=== PATIENT | male | born 1930 | race Caucasian/White ===

== ENCOUNTER 2020-09-30 13:31 | Inpatient (IN) | payer MEDICARE, MEDICAID ==
[~2020-09-30] VITALS: Ht 157.5 cm; Wt 49.9 kg
[2020-09-30] MEDS ORDERED: DEXAMETHASONE 4MG/ML 1ML VIAL IV ONE (15:00)
[2020-09-30] MEDS ORDERED: ALBUTEROL 6.7GM HFA INHALER ORI ONE (15:00)
[2020-09-30 15:49] LABS: CHLORIDE 101 mEq/L (98-107)
[2020-09-30 16:01] LABS: HEMOGLOBIN. 14.4 g/dL (14.0-18.0); MEAN CORPUSCULAR HEMOGLOBIN 29.7 pg (28.0-32.0); MEAN CORPUSCULAR VOLUME 86.6 fL (80.0-94.0); MEAN PLATELET VOLUME 8.5 fl (7.4-10.4); PLATELET 255 x1000/uL (130-400); RED BLOOD CELL COUNT 4.85 mill/uL (4.7-6.1); RED CELL DISTRIBUTION WIDTH 14.5 % (11.6-14.6)
[2020-09-30 17:19] LABS: PLATELET ESTIMATE NORMAL
[2020-09-30] MEDS ORDERED: FUROSEMIDE 20MG TABLET PO ONE (19:45)
[2020-09-30] MEDS ORDERED: AZITHROMYCIN 500 MG in DEXT 5% WATER 250 ML IV SCH ×2 (20:00→22:45)
[2020-09-30] MEDS ORDERED: CEFTRIAXONE 1 G PREMIX 50 ML IV NR ×2 (20:00→23:30)
[2020-09-30] MEDS ORDERED: CLONIDINE 0.1MG TABLET PO PRN (22:45)
[2020-09-30] MEDS ORDERED: ACETAMINOPHEN 325MG TABLET PO PRN (22:45)
[2020-09-30] MEDS ORDERED: IPRATROPIUM/ALBUTEROL 0.5-3(2.5)MG/3ML NEB ORI PRN (22:45)
[2020-09-30] MEDS ORDERED: HYDROCODONE/ACETAMINOPHEN 5/325MG TABLET PO PRN (22:45)
[2020-09-30] MEDS ORDERED: MAGNESIUM/ALUMINUM HYDROXIDE/SIMETHICONE 30ML UDC PO PRN (22:45)
[2020-09-30] MEDS ORDERED: ONDANSETRON HCL 4MG/2ML INJ IV PRN (22:45)
[2020-09-30] MEDS ORDERED: GUAIFENESIN 200MG/10ML SUGAR FREE UDC PO PRN (22:45)
[2020-09-30] MEDS ORDERED: DOCUSATE SODIUM 100MG CAPSULE PO PRN (22:45)
[2020-09-30] MEDS ORDERED: ENOXAPARIN 40MG/0.4ML SYR SUBCUT NR (22:58)
[2020-09-30] MEDS ORDERED: ADENOSINE 3 MG/ML 2ML VIAL IV NR (23:15)
[2020-09-30] MEDS ORDERED: SODIUM CHLORIDE 0.9% 1,000 ML IV ONE (23:15)
[2020-10-01 01:32] LABS: CHLORIDE 101 mEq/L (98-107)
[2020-10-01 01:59] VITALS: BP 132/71
[2020-10-01 04:00] VITALS: BP 144/76
[2020-10-01 05:59] LABS: CLARITY URINE CLEAR (CLEAR); COLOR URINE DARK YELLOW (YELLOW); KETONES URINE TRACE (NEGATIVE); LEUKOCYTE ESTERASE URINE NEGATIVE (NEGATIVE); NITRITE URINE NEGATIVE (NEGATIVE); OCCULT BLOOD URINE 2+ (NEGATIVE); PH URINE 5.5 (4.5-8.0); PROTEIN URINE 2+ (NEGATIVE); SPECIFIC GRAVITY URINE 1.024 (1.005-1.030)
[2020-10-01] MEDS: BLOOD SUGAR DIAGNOSTIC STRIP TEST SCH ×4 (06:00→22:20)
[2020-10-01 08:00] VITALS: BP 145/73
[2020-10-01] MEDS: INSULIN LISPRO 100 UNITS/ML SUBCUT SCH ×4 (08:10→22:28)
[2020-10-01 08:39] LABS: HEMOGLOBIN. 15.2 g/dL (14.0-18.0); MEAN CORPUSCULAR HEMOGLOBIN 29.7 pg (28.0-32.0); MEAN CORPUSCULAR VOLUME 87.9 fL (80.0-94.0); MEAN PLATELET VOLUME 8.8 fl (7.4-10.4); PLATELET 269 x1000/uL (130-400); RED BLOOD CELL COUNT 5.11 mill/uL (4.7-6.1); RED CELL DISTRIBUTION WIDTH 14.3 % (11.6-14.6)
[2020-10-01 08:59] LABS: CREATINE KINASE MB FRACTION 29.7 ng/mL (0.5-3.6)
[2020-10-01] MEDS: DEXAMETHASONE 10 MG/ML VIAL IV SCH (09:51)
[2020-10-01 11:53] LABS: PLATELET ESTIMATE NORMAL
[2020-10-01 12:00] VITALS: BP 138/115
[2020-10-01] MEDS: FAMOTIDINE 20MG TABLET PO SCH ×2 (15:19→21:40)
[2020-10-01 16:00] VITALS: BP 142/28
[2020-10-01 16:23] LABS: CREATINE KINASE MB FRACTION 32.9 ng/mL (0.5-3.6)
[2020-10-01] MEDS ORDERED: ALBUTEROL 6.7GM HFA INHALER ORI PRN (17:00)
[2020-10-01] MEDS ORDERED: IPRATROPIUM/ALBUTEROL 0.5-3(2.5)MG/3ML NEB ORI PRN ×2 (17:00)
[2020-10-01 20:00] VITALS: BP 130/61
[2020-10-01] MEDS ORDERED: ENOXAPARIN 40MG/0.4ML SYR SUBCUT SCH (21:00)
[2020-10-01] MEDS: CEFTRIAXONE 1,000 MG in DEXTROSE 5% WATER 50 ML IV SCH (22:28)
[2020-10-01] MEDS: AZITHROMYCIN 500MG in DEXTROSE 5% WATER 250ML IV SCH (23:15)
[2020-10-01] MEDS ORDERED: DILTIAZEM HCL 5MG/ML 5ML VIAL IV NR (23:45)
[2020-10-02] VITALS (7 sets, daily range): BP systolic 97–136; BP diastolic 43–55
[2020-10-02] MEDS: AZITHROMYCIN 500MG in DEXTROSE 5% WATER 250ML IV SCH (00:03)
[2020-10-02] MEDS ORDERED: NON FORMULARY PATIENT HOME MED XX SCH (03:15)
[2020-10-02 03:27] LABS: BG BASE EXCESS -10.9 mmol/L (-2.0-2.0); BG CARBOXYHEMOGLOBIN 0.5 % (0.5-1.5); BG DEOXYHEMOGLOBIN 11.2 % (0.0-5.0); BG FRACTION INSPIRED OXYGEN 60; BG HCO3 ACT 16.1 mmol/L (22.0-26.0); BG METHEMOGLOBIN 0.3 % (0.0-1.5); BG OXYGEN SATURATION 88.7 % (92.0-98.5); BG PCO2 39.6 mmHg (35.0-45.0); BG PH 7.227 (7.350-7.450); BG PO2 65.4 mmHg (75.0-100.0); BG SAMPLE SITE RIGHT RADIAL; BG TOTAL HEMOGLOBIN 14.3 g/dL (12.0-18.0); BG VENT MODE MASK - SIMPLE
[2020-10-02] MEDS ORDERED: DILTIAZEM HCL 5MG/ML 5ML VIAL IV SCH (03:30)
[2020-10-02] MEDS: DILTIAZEM HCL 125 MG in DEXTROSE 5% WATER 125 ML IV SCH ×3 (04:50→20:10)
[2020-10-02] MEDS: BLOOD SUGAR DIAGNOSTIC STRIP TEST SCH ×4 (06:47→21:36)
[2020-10-02] MEDS: INSULIN LISPRO 100 UNITS/ML SUBCUT SCH ×4 (06:47→23:06)
[2020-10-02] MEDS ORDERED: ENOXAPARIN 60MG/0.6ML SYR SUBCUT SCH (09:00)
[2020-10-02] MEDS: FAMOTIDINE 20MG TABLET PO SCH ×2 (11:03→23:05)
[2020-10-02] MEDS: DEXAMETHASONE 10 MG/ML VIAL IV SCH (11:04)
[2020-10-02 11:25] LABS: HEMOGLOBIN. 14.5 g/dL (14.0-18.0); MEAN CORPUSCULAR HEMOGLOBIN 29.5 pg (28.0-32.0); MEAN CORPUSCULAR VOLUME 87.8 fL (80.0-94.0); MEAN PLATELET VOLUME 9.9 fl (7.4-10.4); PLATELET 273 x1000/uL (130-400); RED BLOOD CELL COUNT 4.89 mill/uL (4.7-6.1); RED CELL DISTRIBUTION WIDTH 14.4 % (11.6-14.6)
[2020-10-02] MEDS: DILTIAZEM HCL 60MG TABLET PO SCH ×2 (12:00→18:33)
[2020-10-02 14:13] LABS: PLATELET ESTIMATE NORMAL
[2020-10-02 16:07] LABS: INR 1.2
[2020-10-02] MEDS ORDERED: DEXT 5%/0.9% NACL 1,000 ML IV NR (16:30)
[2020-10-02] MEDS ORDERED: SODIUM POLYSTYRENE SULFONATE 15 G/60 ML BOT PO NR (18:00)
[2020-10-02] MEDS: CEFTRIAXONE 1,000 MG in DEXTROSE 5% WATER 50 ML IV SCH (23:21)
[2020-10-03] VITALS (8 sets, daily range): BP systolic 99–148; BP diastolic 48–80
[2020-10-03] MEDS: DILTIAZEM HCL 125 MG in DEXTROSE 5% WATER 125 ML IV SCH ×2
[2020-10-03] MEDS: AZITHROMYCIN 500MG in DEXTROSE 5% WATER 250ML IV SCH (00:06)
[2020-10-03] MEDS: DILTIAZEM HCL 60MG TABLET PO SCH ×2 (06:05)
[2020-10-03 06:25] LABS: HEMATOCRIT. 36.9 % (42.0-52.0); HEMOGLOBIN. 12.4 g/dL (14.0-18.0); MEAN CORPUSCULAR HEMOGLOBIN 29.2 pg (28.0-32.0); MEAN CORPUSCULAR VOLUME 86.9 fL (80.0-94.0); PLATELET 355 x1000/uL (130-400); RED BLOOD CELL COUNT 4.25 mill/uL (4.7-6.1); RED CELL DISTRIBUTION WIDTH 14.4 % (11.6-14.6)
[2020-10-03] MEDS: BLOOD SUGAR DIAGNOSTIC STRIP TEST SCH ×4 (06:59→21:58)
[2020-10-03] MEDS: INSULIN LISPRO 100 UNITS/ML SUBCUT SCH ×4 (08:40→21:00)
[2020-10-03] MEDS: FAMOTIDINE 20MG TABLET PO SCH ×2 (09:14→21:00)
[2020-10-03] MEDS: ENOXAPARIN 60MG/0.6ML SYR SUBCUT SCH (09:15)
[2020-10-03] MEDS: CLONIDINE 0.1MG TABLET PO SCH ×2 (12:36→22:00)
[2020-10-03] MEDS: DEXAMETHASONE 10 MG/ML VIAL IV SCH (12:37)
[2020-10-03] MEDS ORDERED: DILTIAZEM HCL 125 MG in DEXT 5% WATER 100 ML IV SCH (13:00)
[2020-10-03] MEDS: DILTIAZEM HCL 90MG TABLET PO SCH ×2 (15:38→22:00)
[2020-10-03] MEDS: DEXT 5%/0.9% NACL 1,000 ML IV SCH (16:58)
[2020-10-03 17:09] LABS: PLATELET ESTIMATE NORMAL
[2020-10-03 20:44] LABS: HEMATOCRIT 39.4 % (42.0-52.0); HEMOGLOBIN 12.8 g/dL (14.0-18.0)
[2020-10-04] VITALS (37 sets, daily range): BP systolic 75–128; BP diastolic 42–96
[2020-10-04] MEDS: CEFTRIAXONE 1,000 MG in DEXTROSE 5% WATER 50 ML IV SCH (00:45)
[2020-10-04] MEDS: AZITHROMYCIN 500MG in DEXTROSE 5% WATER 250ML IV SCH (00:45)
[2020-10-04 01:12] LABS: BG BASE EXCESS -9.8 mmol/L (-2.0-2.0); BG CARBOXYHEMOGLOBIN 0.3 % (0.5-1.5); BG DEOXYHEMOGLOBIN 9.5 % (0.0-5.0); BG FRACTION INSPIRED OXYGEN 100; BG HCO3 ACT 18.5 mmol/L (22.0-26.0); BG METHEMOGLOBIN 0.2 % (0.0-1.5); BG OXYGEN SATURATION 90.5 % (92.0-98.5); BG PCO2 51.1 mmHg (35.0-45.0); BG PH 7.176 (7.350-7.450); BG PO2 72.4 mmHg (75.0-100.0); BG SAMPLE SITE LEFT RADIAL; BG TOTAL HEMOGLOBIN 11.5 g/dL (12.0-18.0); BG VENT MODE MASK - NRB
[2020-10-04] MEDS: CLONIDINE 0.1MG TABLET PO SCH ×3 (06:00→22:00)
[2020-10-04] MEDS: DILTIAZEM HCL 90MG TABLET PO SCH ×3 (06:00→22:00)
[2020-10-04] MEDS: BLOOD SUGAR DIAGNOSTIC STRIP TEST SCH ×4 (08:02→21:39)
[2020-10-04] MEDS: FAMOTIDINE 20MG TABLET PO SCH ×2 (09:00→21:32)
[2020-10-04] MEDS: DEXAMETHASONE 10 MG/ML VIAL IV SCH (10:04)
[2020-10-04] MEDS: INSULIN LISPRO 100 UNITS/ML SUBCUT SCH ×4 (10:04→21:36)
[2020-10-04] MEDS: ENOXAPARIN 60MG/0.6ML SYR SUBCUT SCH (10:06)
[2020-10-04] MEDS: DEXT 5%/0.9% NACL 1,000 ML IV SCH ×2 (10:07→21:37)
[2020-10-04] MEDS ORDERED: FENTANYL CITRATE/PF 1,000 MCG in SODIUM CHLORIDE 0.9% 80 ML IV PRN (11:00)
[2020-10-04] MEDS ORDERED: NOREPINEPHRINE 32 MG in DEXT 5% WATER 218 ML IV PRN ×2 (11:00→11:30)
[2020-10-04] MEDS ORDERED: MIDAZOLAM HCL 100 MG in SODIUM CHLORIDE 0.9% 80 ML IV PRN (11:00)
[2020-10-04 11:04] LABS: HEMATOCRIT. 37.1 % (42.0-52.0); HEMOGLOBIN. 12.2 g/dL (14.0-18.0); MEAN CORPUSCULAR HEMOGLOBIN 29.6 pg (28.0-32.0); MEAN CORPUSCULAR VOLUME 90.4 fL (80.0-94.0); MEAN PLATELET VOLUME 9.3 fl (7.4-10.4); PLATELET 325 x1000/uL (130-400); RED BLOOD CELL COUNT 4.11 mill/uL (4.7-6.1); RED CELL DISTRIBUTION WIDTH 15.1 % (11.6-14.6)
[2020-10-04 11:22] LABS: CREATINE KINASE MB FRACTION 42.6 ng/mL (0.5-3.6)
[2020-10-04 12:52] LABS: BG BASE EXCESS -6.9 mmol/L (-2.0-2.0); BG CARBOXYHEMOGLOBIN 0.3 % (0.5-1.5); BG DEOXYHEMOGLOBIN 0.4 % (0.0-5.0); BG FRACTION INSPIRED OXYGEN 100; BG HCO3 ACT 19.4 mmol/L (22.0-26.0); BG OXYGEN SATURATION 99.6 % (92.0-98.5); BG OXYHEMOGLOBIN 99.3 % (94.0-97.0); BG PCO2 41.9 mmHg (35.0-45.0); BG PH 7.284 (7.350-7.450); BG SAMPLE SITE RIGHT BRACHIAL; BG TOTAL HEMOGLOBIN 12.7 g/dL (12.0-18.0); BG VENT MODE VENT - AC
[2020-10-04] MEDS ORDERED: SODIUM BICARBONATE 8.4% 1 MEQ/ML 50ML SYR IV NR (13:00)
[2020-10-04] MEDS ORDERED: CEFTRIAXONE 1,000 MG in DEXTROSE 5% WATER 50 ML IV SCH (13:00)
[2020-10-04 13:26] LABS: PLATELET ESTIMATE NORMAL
[2020-10-04] MEDS ORDERED: SODIUM BICARBONATE 4% (2.4MEQ) 5ML VIAL IV ONE (13:30)
[2020-10-04] MEDS ORDERED: LIDOCAINE HCL 1% 20ML VIAL (Pyxis) INJ ONE (13:30)
[2020-10-04] MEDS ORDERED: AZITHROMYCIN 500MG in DEXTROSE 5% WATER 250ML IV SCH (14:00)
[2020-10-04] MEDS ORDERED: ALBUMIN HUMAN 25GM/500ML (5%) IV NR (14:00)
[2020-10-04] MEDS: PHENYLEPHRINE 100 MG in DEXT 5% WATER 240 ML IV PRN (14:52)
[2020-10-05] VITALS (78 sets, daily range): BP systolic 69–196; BP diastolic 33–154
[2020-10-05] MEDS: FENTANYL CITRATE/PF 2,500 MCG in SODIUM CHLORIDE 0.9% 200 ML IV PRN (01:52)
[2020-10-05] MEDS ORDERED: VECURONIUM BROMIDE 10 MG/VIAL IV ONE (03:00)
[2020-10-05] MEDS ORDERED: ETOMIDATE 2MG/ML 10ML VIAL IV ONE (03:00)
[2020-10-05] MEDS ORDERED: SUCCINYLCHOLINE CHLORIDE 200MG/10ML IV ONE (03:00)
[2020-10-05] MEDS ORDERED: SODIUM CHLORIDE 0.9% 10ML VIAL ONE (03:00)
[2020-10-05] MEDS: CLONIDINE 0.1MG TABLET PO SCH (06:00)
[2020-10-05] MEDS: DILTIAZEM HCL 90MG TABLET PO SCH (06:00)
[2020-10-05 06:05] LABS: HEMATOCRIT. 33.3 % (42.0-52.0); HEMOGLOBIN. 11.5 g/dL (14.0-18.0); MEAN CORPUSCULAR HEMOGLOBIN 30.1 pg (28.0-32.0); MEAN CORPUSCULAR VOLUME 87.4 fL (80.0-94.0); PLATELET 294 x1000/uL (130-400); RED BLOOD CELL COUNT 3.81 mill/uL (4.7-6.1); RED CELL DISTRIBUTION WIDTH 14.8 % (11.6-14.6)
[2020-10-05 06:08] LABS: PHOSPHORUS 5.9 mg/dL (2.5-4.9)
[2020-10-05] MEDS: BLOOD SUGAR DIAGNOSTIC STRIP TEST SCH ×4 (07:01→21:51)
[2020-10-05] MEDS: INSULIN LISPRO 100 UNITS/ML SUBCUT SCH ×4 (08:20→21:49)
[2020-10-05] MEDS ORDERED: POTASSIUM CHLORIDE 20MEQ/PACKET PO NR (09:00)
[2020-10-05] MEDS: DEXAMETHASONE 10 MG/ML VIAL IV SCH (09:00)
[2020-10-05 09:30] LABS: BG BASE EXCESS 0.3 mmol/L (-2.0-2.0); BG CARBOXYHEMOGLOBIN 0.1 % (0.5-1.5); BG DEOXYHEMOGLOBIN 0.9 % (0.0-5.0); BG FRACTION INSPIRED OXYGEN 100; BG HCO3 ACT 24.7 mmol/L (22.0-26.0); BG METHEMOGLOBIN 0.3 % (0.0-1.5); BG OXYGEN SATURATION 99.1 % (92.0-98.5); BG OXYHEMOGLOBIN 98.7 % (94.0-97.0); BG PO2 374.3 mmHg (75.0-100.0); BG SAMPLE SITE RIGHT RADIAL; BG TOTAL HEMOGLOBIN 10.5 g/dL (12.0-18.0); BG TOTAL RESPIRATORY RATE 22 b/min; BG VENT MODE VENT - AC
[2020-10-05] MEDS: DEXTROSE 5% WATER 1,000 ML IV SCH ×2 (10:42→21:51)
[2020-10-05] MEDS: ENOXAPARIN 60MG/0.6ML SYR SUBCUT SCH (10:43)
[2020-10-05] MEDS: FAMOTIDINE 20MG TABLET PO SCH ×2 (10:43→21:47)
[2020-10-05 14:27] LABS: PLATELET ESTIMATE NORMAL
[2020-10-06] VITALS (59 sets, daily range): BP systolic 111–157; BP diastolic 61–99
[2020-10-06] MEDS: PHENYLEPHRINE 100 MG in DEXT 5% WATER 240 ML IV PRN ×2 (04:26→15:55)
[2020-10-06 06:16] LABS: HEMATOCRIT. 39.1 % (42.0-52.0); HEMOGLOBIN. 12.7 g/dL (14.0-18.0); MEAN CORPUSCULAR HEMOGLOBIN 28.7 pg (28.0-32.0); MEAN CORPUSCULAR VOLUME 88.3 fL (80.0-94.0); MEAN PLATELET VOLUME 8.9 fl (7.4-10.4); PLATELET 313 x1000/uL (130-400); RED BLOOD CELL COUNT 4.43 mill/uL (4.7-6.1); RED CELL DISTRIBUTION WIDTH 14.5 % (11.6-14.6)
[2020-10-06 06:20] LABS: PHOSPHORUS 4.1 mg/dL (2.5-4.9)
[2020-10-06] MEDS: BLOOD SUGAR DIAGNOSTIC STRIP TEST SCH ×4 (07:50→21:00)
[2020-10-06] MEDS: INSULIN LISPRO 100 UNITS/ML SUBCUT SCH ×4 (08:20→21:00)
[2020-10-06] MEDS: FAMOTIDINE 20MG TABLET PO SCH ×2 (10:00→22:14)
[2020-10-06] MEDS: DEXAMETHASONE 10 MG/ML VIAL IV SCH (10:00)
[2020-10-06] MEDS: ENOXAPARIN 60MG/0.6ML SYR SUBCUT SCH (10:02)
[2020-10-06] MEDS: DEXTROSE 5% WATER 1,000 ML IV SCH ×2 (11:40→15:56)
[2020-10-06 11:54] LABS: NUCLEATED RED BLOOD CELLS 4 /100 WBC
[2020-10-06 11:56] LABS: PLATELET ESTIMATE NORMAL
[2020-10-06 13:04] LABS: BG BASE EXCESS -0.4 mmol/L (-2.0-2.0); BG CARBOXYHEMOGLOBIN 0.4 % (0.5-1.5); BG DEOXYHEMOGLOBIN 0.5 % (0.0-5.0); BG FRACTION INSPIRED OXYGEN 90; BG HCO3 ACT 23.1 mmol/L (22.0-26.0); BG METHEMOGLOBIN 0.3 % (0.0-1.5); BG OXYGEN SATURATION 99.5 % (92.0-98.5); BG OXYHEMOGLOBIN 98.8 % (94.0-97.0); BG PCO2 34.2 mmHg (35.0-45.0); BG PH 7.447 (7.350-7.450); BG PO2 297.6 mmHg (75.0-100.0); BG SAMPLE SITE RIGHT RADIAL; BG TOTAL HEMOGLOBIN 13.5 g/dL (12.0-18.0); BG TOTAL RESPIRATORY RATE 23 b/min; BG VENT MODE VENT - AC
[2020-10-07] VITALS (70 sets, daily range): BP systolic 92–161; BP diastolic 49–85
[2020-10-07] MEDS: PHENYLEPHRINE 100 MG in DEXT 5% WATER 240 ML IV PRN ×2 (04:14→17:32)
[2020-10-07 04:36] LABS: HEMATOCRIT. 38.9 % (42.0-52.0); HEMOGLOBIN. 12.6 g/dL (14.0-18.0); MEAN CORPUSCULAR HEMOGLOBIN 28.6 pg (28.0-32.0); MEAN CORPUSCULAR VOLUME 88.3 fL (80.0-94.0); PLATELET 323 x1000/uL (130-400); RED BLOOD CELL COUNT 4.41 mill/uL (4.7-6.1); RED CELL DISTRIBUTION WIDTH 14.6 % (11.6-14.6)
[2020-10-07] MEDS: BLOOD SUGAR DIAGNOSTIC STRIP TEST SCH ×4 (08:19→21:00)
[2020-10-07] MEDS: DEXAMETHASONE 10 MG/ML VIAL IV SCH (08:40)
[2020-10-07] MEDS: INSULIN LISPRO 100 UNITS/ML SUBCUT SCH ×4 (08:41→23:09)
[2020-10-07] MEDS: FAMOTIDINE 20MG TABLET PO SCH ×2 (08:41→23:07)
[2020-10-07] MEDS: ENOXAPARIN 60MG/0.6ML SYR SUBCUT SCH (08:43)
[2020-10-07 09:55] LABS: BG BASE EXCESS 2.3 mmol/L (-2.0-2.0); BG CARBOXYHEMOGLOBIN 0.7 % (0.5-1.5); BG DEOXYHEMOGLOBIN 2.2 % (0.0-5.0); BG FRACTION INSPIRED OXYGEN 40; BG HCO3 ACT 24.4 mmol/L (22.0-26.0); BG METHEMOGLOBIN 0.4 % (0.0-1.5); BG OXYGEN SATURATION 97.8 % (92.0-98.5); BG OXYHEMOGLOBIN 96.7 % (94.0-97.0); BG PCO2 30.6 mmHg (35.0-45.0); BG PH 7.519 (7.350-7.450); BG PO2 98.3 mmHg (75.0-100.0); BG SAMPLE SITE RIGHT RADIAL; BG TOTAL HEMOGLOBIN 13.7 g/dL (12.0-18.0); BG VENT MODE VENT - AC
[2020-10-07] MEDS: DEXTROSE 5% WATER 1,000 ML IV SCH (14:48)
[2020-10-07 15:16] LABS: NUCLEATED RED BLOOD CELLS 5 /100 WBC; PLATELET ESTIMATE NORMAL
[2020-10-07] MEDS: FENTANYL CITRATE/PF 2,500 MCG in SODIUM CHLORIDE 0.9% 200 ML IV PRN (17:32)
[2020-10-08] VITALS (99 sets, daily range): BP systolic 71–182; BP diastolic 43–104
[2020-10-08] MEDS: DEXTROSE 5% WATER 1,000 ML IV SCH (05:12)
[2020-10-08 06:15] LABS: HEMATOCRIT. 41.9 % (42.0-52.0); HEMOGLOBIN. 13.4 g/dL (14.0-18.0); MEAN CORPUSCULAR HEMOGLOBIN 28.6 pg (28.0-32.0); MEAN CORPUSCULAR VOLUME 89.3 fL (80.0-94.0); PLATELET 273 x1000/uL (130-400); RED BLOOD CELL COUNT 4.69 mill/uL (4.7-6.1); RED CELL DISTRIBUTION WIDTH 14.7 % (11.6-14.6)
[2020-10-08] MEDS ORDERED: DILTIAZEM HCL 5MG/ML 5ML VIAL IV ONE (07:15)
[2020-10-08 07:23] LABS: BG BASE EXCESS 4.2 mmol/L (-2.0-2.0); BG CARBOXYHEMOGLOBIN 0.6 % (0.5-1.5); BG DEOXYHEMOGLOBIN 0.7 % (0.0-5.0); BG FRACTION INSPIRED OXYGEN 100; BG METHEMOGLOBIN 0.4 % (0.0-1.5); BG OXYGEN SATURATION 99.3 % (92.0-98.5); BG OXYHEMOGLOBIN 98.3 % (94.0-97.0); BG PCO2 55.3 mmHg (35.0-45.0); BG PH 7.366 (7.350-7.450); BG PO2 235.7 mmHg (75.0-100.0); BG SAMPLE SITE RIGHT BRACHIAL; BG TOTAL HEMOGLOBIN 14.4 g/dL (12.0-18.0); BG VENT MODE VENT - AC
[2020-10-08] MEDS ORDERED: PROPOFOL 10MG/ML 100ML 100 ML IV PRN (07:45)
[2020-10-08] MEDS: BLOOD SUGAR DIAGNOSTIC STRIP TEST SCH ×4 (07:50→20:32)
[2020-10-08] MEDS: DEXAMETHASONE 10 MG/ML VIAL IV SCH (09:37)
[2020-10-08] MEDS: FAMOTIDINE 20MG TABLET PO SCH ×2 (09:38→20:32)
[2020-10-08] MEDS: ENOXAPARIN 60MG/0.6ML SYR SUBCUT SCH (09:38)
[2020-10-08] MEDS: INSULIN LISPRO 100 UNITS/ML SUBCUT SCH ×4 (09:39→20:32)
[2020-10-08] MEDS ORDERED: DIGOXIN 500MCG/2ML AMP IV NR (10:00)
[2020-10-08 10:02] LABS: BG BASE EXCESS 6.7 mmol/L (-2.0-2.0); BG CARBOXYHEMOGLOBIN 0.1 % (0.5-1.5); BG DEOXYHEMOGLOBIN 0.5 % (0.0-5.0); BG FRACTION INSPIRED OXYGEN 70; BG HCO3 ACT 31.4 mmol/L (22.0-26.0); BG METHEMOGLOBIN 0.4 % (0.0-1.5); BG OXYGEN SATURATION 99.5 % (92.0-98.5); BG PH 7.461 (7.350-7.450); BG PO2 293.5 mmHg (75.0-100.0); BG SAMPLE SITE RIGHT BRACHIAL; BG TOTAL HEMOGLOBIN 12.9 g/dL (12.0-18.0); BG VENT MODE VENT - AC
[2020-10-08 12:57] LABS: NUCLEATED RED BLOOD CELLS 2 /100 WBC; PLATELET ESTIMATE NORMAL
[2020-10-09] VITALS (95 sets, daily range): BP systolic 89–241; BP diastolic 43–108
[2020-10-09 04:11] LABS: HEMATOCRIT. 43.2 % (42.0-52.0); HEMOGLOBIN. 13.8 g/dL (14.0-18.0); MEAN CORPUSCULAR HEMOGLOBIN 28.5 pg (28.0-32.0); MEAN CORPUSCULAR VOLUME 89.3 fL (80.0-94.0); MEAN PLATELET VOLUME 8.4 fl (7.4-10.4); PLATELET 228 x1000/uL (130-400); RED BLOOD CELL COUNT 4.83 mill/uL (4.7-6.1); RED CELL DISTRIBUTION WIDTH 14.5 % (11.6-14.6)
[2020-10-09 04:17] LABS: CHLORIDE 108 mEq/L (98-107)
[2020-10-09 04:24] LABS: PHOSPHORUS 2.1 mg/dL (2.5-4.9)
[2020-10-09] MEDS: BLOOD SUGAR DIAGNOSTIC STRIP TEST SCH ×4 (07:50→20:50)
[2020-10-09] MEDS ORDERED: PROPOFOL 10MG/ML 100ML 100 ML IV PRN (08:15)
[2020-10-09] MEDS: INSULIN LISPRO 100 UNITS/ML SUBCUT SCH ×4 (08:20→20:50)
[2020-10-09] MEDS: DEXAMETHASONE 10 MG/ML VIAL IV SCH (08:59)
[2020-10-09] MEDS: FAMOTIDINE 20MG TABLET PO SCH ×2 (08:59→20:51)
[2020-10-09] MEDS: ENOXAPARIN 60MG/0.6ML SYR SUBCUT SCH ×2 (09:00→20:50)
[2020-10-09] MEDS ORDERED: POTASSIUM PHOS M BASIC D BASIC IV NR (10:00)
[2020-10-09] MEDS ORDERED: DIGOXIN 500MCG/2ML AMP IV NR ×2 (10:00→16:00)
[2020-10-09] MEDS ORDERED: SODIUM CHLORIDE 0.9% IV NR (10:00)
[2020-10-09 10:41] LABS: PLATELET ESTIMATE NORMAL
[2020-10-09 11:35] LABS: BG DEOXYHEMOGLOBIN 1.5 % (0.0-5.0); BG SAMPLE SITE LEFT RADIAL; BG VENT MODE VENT - AC
[2020-10-09 12:25] LABS: BG TOTAL RESPIRATORY RATE 21 b/min
[2020-10-09 12:27] LABS: BG FRACTION INSPIRED OXYGEN 40; BG VENT RATE 18 set
[2020-10-09 12:28] LABS: BG HCO3 ACT 30.1 mmol/L (22.0-26.0); BG PCO2 37.6 mmHg (35.0-45.0); BG PEEP (cmH2O) 5 cmH2O; BG PH 7.521 (7.350-7.450); BG PO2 84.3 mmHg (75.0-100.0)
[2020-10-09 12:29] LABS: BG OXYHEMOGLOBIN 96.1 % (94.0-97.0)
[2020-10-09 12:30] LABS: BG CARBOXYHEMOGLOBIN 0.8 % (0.5-1.5); BG METHEMOGLOBIN 0.1 % (0.0-1.5)
[2020-10-09] MEDS: FENTANYL CITRATE/PF 2,500 MCG in SODIUM CHLORIDE 0.9% 200 ML IV PRN (18:41)
[2020-10-09] MEDS ORDERED: CLONIDINE 0.1MG TABLET PO PRN (19:15)
[2020-10-10] VITALS (94 sets, daily range): BP systolic 99–181; BP diastolic 44–93
[2020-10-10 06:11] LABS: HEMATOCRIT. 40.1 % (42.0-52.0); MEAN CORPUSCULAR VOLUME 89.8 fL (80.0-94.0); MEAN PLATELET VOLUME 9.1 fl (7.4-10.4); PLATELET 200 x1000/uL (130-400); RED BLOOD CELL COUNT 4.46 mill/uL (4.7-6.1); RED CELL DISTRIBUTION WIDTH 14.5 % (11.6-14.6)
[2020-10-10 06:19] LABS: CHLORIDE 111 mEq/L (98-107)
[2020-10-10 06:22] LABS: PHOSPHORUS 3.1 mg/dL (2.5-4.9)
[2020-10-10] MEDS: BLOOD SUGAR DIAGNOSTIC STRIP TEST SCH ×4 (07:50→20:55)
[2020-10-10] MEDS: FAMOTIDINE 20MG TABLET PO SCH ×2 (09:01→20:28)
[2020-10-10] MEDS: ENOXAPARIN 60MG/0.6ML SYR SUBCUT SCH ×2 (09:02→20:29)
[2020-10-10] MEDS: DEXAMETHASONE 10 MG/ML VIAL IV SCH (09:03)
[2020-10-10] MEDS: INSULIN LISPRO 100 UNITS/ML SUBCUT SCH ×4 (09:06→20:55)
[2020-10-10 10:13] LABS: PLATELET ESTIMATE NORMAL
[2020-10-10] MEDS: DEXTROSE 5% WATER 1,000 ML IV SCH (12:23)
[2020-10-10 13:00] LABS: BG BASE EXCESS 6.7 mmol/L (-2.0-2.0); BG CARBOXYHEMOGLOBIN 0.1 % (0.5-1.5); BG DEOXYHEMOGLOBIN 0.6 % (0.0-5.0); BG FRACTION INSPIRED OXYGEN 100; BG HCO3 ACT 32.4 mmol/L (22.0-26.0); BG METHEMOGLOBIN 0.3 % (0.0-1.5); BG OXYGEN SATURATION 99.4 % (92.0-98.5); BG PCO2 49.9 mmHg (35.0-45.0); BG PO2 259.2 mmHg (75.0-100.0); BG SAMPLE SITE LEFT RADIAL; BG TOTAL HEMOGLOBIN 14.4 g/dL (12.0-18.0); BG TOTAL RESPIRATORY RATE 22 b/min; BG VENT MODE VENT - AC
[2020-10-10] MEDS: DIGOXIN 125MCG TABLET PO SCH (19:05)
[2020-10-10 20:36] LABS: T4 FREE 0.8 ng/dL (0.76-1.46)
[2020-10-10 21:01] LABS: VITAMIN B12 SERUM >2000 pg/mL pg/mL (211-911)
[2020-10-11] VITALS (90 sets, daily range): BP systolic 92–162; BP diastolic 44–76
[2020-10-11] MEDS ORDERED: NOREPINEPHRINE 32 MG in SODIUM CHLORIDE 0.9% 218 ML IV SCH (04:30)
[2020-10-11 06:10] LABS: CHLORIDE 109 mEq/L (98-107)
[2020-10-11 06:13] LABS: HEMATOCRIT. 39.3 % (42.0-52.0); HEMOGLOBIN. 12.7 g/dL (14.0-18.0); MEAN CORPUSCULAR HEMOGLOBIN 29.2 pg (28.0-32.0); MEAN CORPUSCULAR VOLUME 90.3 fL (80.0-94.0); MEAN PLATELET VOLUME 9.2 fl (7.4-10.4); PLATELET 178 x1000/uL (130-400); RED BLOOD CELL COUNT 4.36 mill/uL (4.7-6.1); RED CELL DISTRIBUTION WIDTH 14.3 % (11.6-14.6)
[2020-10-11 06:18] LABS: PHOSPHORUS 3.5 mg/dL (2.5-4.9)
[2020-10-11] MEDS: BLOOD SUGAR DIAGNOSTIC STRIP TEST SCH ×4 (08:09→21:00)
[2020-10-11] MEDS: INSULIN LISPRO 100 UNITS/ML SUBCUT SCH ×4 (08:09→21:00)
[2020-10-11] MEDS: DEXAMETHASONE 10 MG/ML VIAL IV SCH (09:00)
[2020-10-11] MEDS: ENOXAPARIN 60MG/0.6ML SYR SUBCUT SCH ×2 (10:12→20:58)
[2020-10-11] MEDS: FAMOTIDINE 20MG TABLET PO SCH ×2 (10:12→20:56)
[2020-10-11] MEDS: FENTANYL CITRATE/PF 2,500 MCG in SODIUM CHLORIDE 0.9% 200 ML IV PRN (10:13)
[2020-10-11] MEDS: DEXTROSE 5% WATER 1,000 ML IV SCH (10:15)
[2020-10-11] MEDS ORDERED: SODIUM POLYSTYRENE SULFONATE 15 G/60 ML BOT PO NR (13:00)
[2020-10-11 13:12] LABS: PLATELET ESTIMATE NORMAL
[2020-10-11] MEDS: DIGOXIN 125MCG TABLET PO SCH (17:47)
[2020-10-12] VITALS (96 sets, daily range): BP systolic 90–167; BP diastolic 39–90
[2020-10-12] MEDS: FENTANYL CITRATE/PF 2,500 MCG in SODIUM CHLORIDE 0.9% 200 ML IV PRN ×2 (03:45→23:50)
[2020-10-12 06:10] LABS: HEMATOCRIT. 36.2 % (42.0-52.0); MEAN CORPUSCULAR HEMOGLOBIN 29.4 pg (28.0-32.0); MEAN CORPUSCULAR VOLUME 88.8 fL (80.0-94.0); MEAN PLATELET VOLUME 9.5 fl (7.4-10.4); PLATELET 136 x1000/uL (130-400); RED BLOOD CELL COUNT 4.07 mill/uL (4.7-6.1); RED CELL DISTRIBUTION WIDTH 14.4 % (11.6-14.6)
[2020-10-12 06:11] LABS: CHLORIDE 110 mEq/L (98-107)
[2020-10-12] MEDS: INSULIN LISPRO 100 UNITS/ML SUBCUT SCH ×3 (07:05→18:00)
[2020-10-12] MEDS: BLOOD SUGAR DIAGNOSTIC STRIP TEST SCH ×3 (07:05→18:28)
[2020-10-12] MEDS: DEXTROSE 5% WATER 1,000 ML IV SCH (08:38)
[2020-10-12] MEDS: ENOXAPARIN 60MG/0.6ML SYR SUBCUT SCH ×2 (08:39→20:47)
[2020-10-12] MEDS: FAMOTIDINE 20MG TABLET PO SCH ×2 (08:40→20:46)
[2020-10-12 09:53] LABS: BG BASE EXCESS 7.2 mmol/L (-2.0-2.0); BG CARBOXYHEMOGLOBIN 1.1 % (0.5-1.5); BG DEOXYHEMOGLOBIN 10.6 % (0.0-5.0); BG FRACTION INSPIRED OXYGEN 40; BG HCO3 ACT 32.2 mmol/L (22.0-26.0); BG METHEMOGLOBIN 0.3 % (0.0-1.5); BG OXYGEN SATURATION 89.2 % (92.0-98.5); BG PEEP (cmH2O) 0 cmH2O; BG PH 7.453 (7.350-7.450); BG PO2 55.2 mmHg (75.0-100.0); BG SAMPLE SITE RIGHT RADIAL; BG TOTAL HEMOGLOBIN 12.8 g/dL (12.0-18.0); BG TOTAL RESPIRATORY RATE 23 b/min; BG VENT MODE VENT - AC
[2020-10-12 12:42] LABS: BG BASE EXCESS 8.1 mmol/L (-2.0-2.0); BG CARBOXYHEMOGLOBIN 0.8 % (0.5-1.5); BG DEOXYHEMOGLOBIN 6.7 % (0.0-5.0); BG FRACTION INSPIRED OXYGEN 60; BG HCO3 ACT 33.9 mmol/L (22.0-26.0); BG METHEMOGLOBIN 0.3 % (0.0-1.5); BG OXYGEN SATURATION 93.2 % (92.0-98.5); BG OXYHEMOGLOBIN 92.2 % (94.0-97.0); BG PCO2 52.1 mmHg (35.0-45.0); BG PH 7.431 (7.350-7.450); BG PO2 68.3 mmHg (75.0-100.0); BG SAMPLE SITE RIGHT BRACHIAL; BG TOTAL HEMOGLOBIN 13.2 g/dL (12.0-18.0); BG TOTAL RESPIRATORY RATE 21 b/min; BG VENT MODE VENT - AC
[2020-10-12 17:41] LABS: PLATELET ESTIMATE NORMAL
[2020-10-12] MEDS: DIGOXIN 125MCG TABLET PO SCH (18:31)
[2020-10-13] VITALS (89 sets, daily range): BP systolic 86–164; BP diastolic 32–94
[2020-10-13] MEDS: BLOOD SUGAR DIAGNOSTIC STRIP TEST SCH ×4 (00:01→17:09)
[2020-10-13] MEDS: INSULIN LISPRO 100 UNITS/ML SUBCUT SCH ×4 (00:07→17:09)
[2020-10-13 05:55] LABS: HEMATOCRIT. 34.3 % (42.0-52.0); HEMOGLOBIN. 11.4 g/dL (14.0-18.0); MEAN CORPUSCULAR HEMOGLOBIN 29.8 pg (28.0-32.0); MEAN CORPUSCULAR VOLUME 89.7 fL (80.0-94.0); MEAN PLATELET VOLUME 9.5 fl (7.4-10.4); PLATELET 113 x1000/uL (130-400); RED BLOOD CELL COUNT 3.83 mill/uL (4.7-6.1); RED CELL DISTRIBUTION WIDTH 14.4 % (11.6-14.6)
[2020-10-13 06:09] LABS: CHLORIDE 106 mEq/L (98-107)
[2020-10-13] MEDS: DEXTROSE 5% WATER 1,000 ML IV SCH ×2 (06:50→22:27)
[2020-10-13] MEDS: ENOXAPARIN 60MG/0.6ML SYR SUBCUT SCH ×2 (08:43→21:00)
[2020-10-13] MEDS: FAMOTIDINE 20MG TABLET PO SCH ×2 (08:43→22:26)
[2020-10-13 13:49] LABS: PLATELET ESTIMATE SLIGHTLY DECREASED
[2020-10-13] MEDS: DILTIAZEM HCL 125 MG in DEXT 5% WATER 100 ML IV PRN (15:30)
[2020-10-13] MEDS: FENTANYL CITRATE/PF 2,500 MCG in SODIUM CHLORIDE 0.9% 200 ML IV PRN (17:00)
[2020-10-13] MEDS: DIGOXIN 125MCG TABLET PO SCH (17:17)
[2020-10-14] VITALS (103 sets, daily range): BP systolic 68–146; BP diastolic 31–89
[2020-10-14] MEDS: BLOOD SUGAR DIAGNOSTIC STRIP TEST SCH ×4 (00:30→17:58)
[2020-10-14] MEDS: INSULIN LISPRO 100 UNITS/ML SUBCUT SCH ×4 (06:00→17:58)
[2020-10-14 06:29] LABS: HEMATOCRIT. 36.8 % (42.0-52.0); HEMOGLOBIN. 12.1 g/dL (14.0-18.0); MEAN CORPUSCULAR HEMOGLOBIN 29.5 pg (28.0-32.0); MEAN CORPUSCULAR VOLUME 89.6 fL (80.0-94.0); RED BLOOD CELL COUNT 4.11 mill/uL (4.7-6.1); RED CELL DISTRIBUTION WIDTH 14.5 % (11.6-14.6)
[2020-10-14] MEDS: PHENYLEPHRINE 100 MG in SODIUM CHLORIDE 0.9% 240 ML IV PRN (08:00)
[2020-10-14] MEDS: ENOXAPARIN 60MG/0.6ML SYR SUBCUT SCH ×2 (08:43→21:07)
[2020-10-14] MEDS: FAMOTIDINE 20MG TABLET PO SCH ×2 (08:43→21:08)
[2020-10-14 09:07] LABS: PLATELET ESTIMATE DECREASED
[2020-10-14 09:12] LABS: CHLORIDE 103 mEq/L (98-107)
[2020-10-14 09:29] LABS: BG BASE EXCESS 4.2 mmol/L (-2.0-2.0); BG CARBOXYHEMOGLOBIN 0.3 % (0.5-1.5); BG DEOXYHEMOGLOBIN 9.7 % (0.0-5.0); BG FRACTION INSPIRED OXYGEN 100; BG HCO3 ACT 30.1 mmol/L (22.0-26.0); BG METHEMOGLOBIN 0.3 % (0.0-1.5); BG OXYGEN SATURATION 90.2 % (92.0-98.5); BG OXYHEMOGLOBIN 89.7 % (94.0-97.0); BG PCO2 51.3 mmHg (35.0-45.0); BG PEEP (cmH2O) 0 cmH2O; BG PH 7.386 (7.350-7.450); BG PO2 58.5 mmHg (75.0-100.0); BG SAMPLE SITE RIGHT RADIAL; BG TOTAL HEMOGLOBIN 11.4 g/dL (12.0-18.0); BG TOTAL RESPIRATORY RATE 28 b/min; BG VENT MODE VENT - AC
[2020-10-14] MEDS: DILTIAZEM HCL 30MG TABLET PO SCH ×2 (12:23→17:51)
[2020-10-14] MEDS: DEXTROSE 5% WATER 1,000 ML IV SCH (12:24)
[2020-10-14] MEDS: FENTANYL CITRATE/PF 2,500 MCG in SODIUM CHLORIDE 0.9% 200 ML IV PRN (12:28)
[2020-10-14] MEDS: DILTIAZEM HCL 125 MG in DEXT 5% WATER 100 ML IV PRN (14:51)
[2020-10-14] MEDS: DIGOXIN 125MCG TABLET PO SCH (17:51)
[2020-10-14] MEDS ORDERED: FENTANYL CITRATE/PF 2,500 MCG in SODIUM CHLORIDE 0.9% 200 ML IV PRN (18:15)
[2020-10-14 20:33] LABS: HEMATOCRIT. 34.1 % (42.0-52.0); HEMOGLOBIN. 11.3 g/dL (14.0-18.0); MEAN CORPUSCULAR VOLUME 90.4 fL (80.0-94.0); MEAN PLATELET VOLUME 9.9 fl (7.4-10.4); PLATELET 139 x1000/uL (130-400); RED BLOOD CELL COUNT 3.77 mill/uL (4.7-6.1); RED CELL DISTRIBUTION WIDTH 14.7 % (11.6-14.6)
[2020-10-14 22:43] LABS: PLATELET ESTIMATE NORMAL
[2020-10-15] VITALS (63 sets, daily range): BP systolic 67–218; BP diastolic 17–96
[2020-10-15] MEDS: BLOOD SUGAR DIAGNOSTIC STRIP TEST SCH ×3 (00:33→12:15)
[2020-10-15] MEDS: PHENYLEPHRINE 100 MG in SODIUM CHLORIDE 0.9% 240 ML IV PRN ×2 (00:36→12:30)
[2020-10-15] MEDS: DILTIAZEM HCL 30MG TABLET PO SCH ×4 (06:00→12:18)
[2020-10-15 06:10] LABS: HEMATOCRIT. 35.4 % (42.0-52.0); HEMOGLOBIN. 11.5 g/dL (14.0-18.0); MEAN CORPUSCULAR HEMOGLOBIN 29.5 pg (28.0-32.0); MEAN CORPUSCULAR VOLUME 90.7 fL (80.0-94.0); RED CELL DISTRIBUTION WIDTH 14.9 % (11.6-14.6)
[2020-10-15] MEDS: INSULIN LISPRO 100 UNITS/ML SUBCUT SCH ×3 (07:00→12:00)
[2020-10-15] MEDS: DEXTROSE 50% WATER 50ML SYRINGE IV PRN ×2 (07:43→08:33)
[2020-10-15] MEDS: ENOXAPARIN 60MG/0.6ML SYR SUBCUT SCH (08:18)
[2020-10-15] MEDS: FAMOTIDINE 20MG TABLET PO SCH (08:18)
[2020-10-15] MEDS ORDERED: DEXT 5%/0.9% NACL 1,000 ML IV SCH ×2 (09:00→13:51)
[2020-10-15] MEDS ORDERED: SODIUM POLYSTYRENE SULFONATE 15 G/60 ML BOT PO NR (10:00)
[2020-10-15 11:44] LABS: BG BASE EXCESS -16.9 mmol/L (-2.0-2.0); BG CARBOXYHEMOGLOBIN 0.3 % (0.5-1.5); BG DEOXYHEMOGLOBIN 10.3 % (0.0-5.0); BG FRACTION INSPIRED OXYGEN 100; BG HCO3 ACT 15.5 mmol/L (22.0-26.0); BG METHEMOGLOBIN 0.2 % (0.0-1.5); BG OXYGEN SATURATION 89.6 % (92.0-98.5); BG OXYHEMOGLOBIN 89.2 % (94.0-97.0); BG PCO2 71.6 mmHg (35.0-45.0); BG PH 6.953 (7.350-7.450); BG PO2 75.5 mmHg (75.0-100.0); BG SAMPLE SITE RIGHT RADIAL; BG TOTAL HEMOGLOBIN 11.6 g/dL (12.0-18.0); BG TOTAL RESPIRATORY RATE 21 b/min; BG VENT MODE VENT - AC
[2020-10-15] MEDS ORDERED: CALCIUM CHLORIDE 1GM/10ML SYR IV ONE (12:00)
[2020-10-15] MEDS ORDERED: METOCLOPRAMIDE HCL 10MG/2ML VIAL IV SCH (12:00)
[2020-10-15] MEDS ORDERED: EPINEPHRINE 0.1MG/ML (1:10,000) 10ML SYR ONE (12:00)
[2020-10-15] MEDS ORDERED: SODIUM BICARBONATE 8.4% 1 MEQ/ML 50ML SYR IV ONE (12:00)
[2020-10-15] MEDS ORDERED: SODIUM BICARBONATE 8.4% 1 MEQ/ML 50ML SYR IV NR ×2 (12:00→13:45)
[2020-10-15 13:15] LABS: NUCLEATED RED BLOOD CELLS 1 /100 WBC; PLATELET ESTIMATE NORMAL
[2020-10-15 13:17] LABS: MEAN PLATELET VOLUME 10.5 fl (7.4-10.4); PLATELET 146 x1000/uL (130-400)
[2020-10-15] MEDS ORDERED: SODIUM CHLORIDE 0.9% 1,000 ML IV SCH (13:30)
[2020-10-15 13:42] LABS: BG BASE EXCESS -13.9 mmol/L (-2.0-2.0); BG CARBOXYHEMOGLOBIN 0.3 % (0.5-1.5); BG DEOXYHEMOGLOBIN 26.9 % (0.0-5.0); BG HCO3 ACT 17.6 mmol/L (22.0-26.0); BG METHEMOGLOBIN 0.1 % (0.0-1.5); BG OXYHEMOGLOBIN 72.7 % (94.0-97.0); BG PCO2 71.8 mmHg (35.0-45.0); BG PH 7.008 (7.350-7.450); BG PO2 46.8 mmHg (75.0-100.0); BG SAMPLE SITE RIGHT RADIAL; BG TOTAL HEMOGLOBIN 11.1 g/dL (12.0-18.0); BG VENT MODE VENT - AC
== END 2020-10-15 14:51 | disposition expired | DRG 870 ==
LOC: ER 14:13 → 7WST 18:28 → EDBEDREQ 18:37 → ENRESERV 23:33 → CVICU 10-04 11:02
PROVIDERS: ADMIT Internal Medicine; ATTEND Internal Medicine
PROC: 5A1955Z Respiratory Ventilation, Greater than 96 Consecutive Hours (ICD-10-PCS; principal; 2020-10-04)
PROC: 05HY33Z Insertion of Infusion Device into Upper Vein, Percutaneous Approach (ICD-10-PCS; 2020-10-04)
PROC: 0BH18EZ Insertion of Endotracheal Airway into Trachea, Via Natural or Artificial Opening Endoscopic (ICD-10-PCS; 2020-10-04)
PROC: B54MZZA Ultrasonography of Right Upper Extremity Veins, Guidance (ICD-10-PCS; 2020-10-04)
DX: A41.89 Other specified sepsis (principal); U07.1 COVID-19; J96.01 Acute respiratory failure with hypoxia; G92 Toxic encephalopathy; J12.82 Pneumonia due to coronavirus disease 2019; I63.40 Cerebral infarction due to embolism of unspecified cerebral artery; N17.0 Acute kidney failure with tubular necrosis; R65.21 Severe sepsis with septic shock; J44.0 Chronic obstructive pulmonary disease with (acute) lower respiratory infection; E87.2 Acidosis; I48.20 Chronic atrial fibrillation, unspecified; E87.0 Hyperosmolality and hypernatremia; E87.4 Mixed disorder of acid-base balance; M62.82 Rhabdomyolysis; E78.5 Hyperlipidemia, unspecified; E87.5 Hyperkalemia; B97.89 Other viral agents as the cause of diseases classified elsewhere; D64.9 Anemia, unspecified; D69.6 Thrombocytopenia, unspecified; D72.810 Lymphocytopenia; E11.22 Type 2 diabetes mellitus with diabetic chronic kidney disease; E11.65 Type 2 diabetes mellitus with hyperglycemia; H57.02 Anisocoria; I48.0 Paroxysmal atrial fibrillation; I12.9 Hypertensive chronic kidney disease with stage 1 through stage 4 chronic kidney disease, or unspecified chronic kidney disease; Z66 Do not resuscitate; Z51.5 Encounter for palliative care; N18.2 Chronic kidney disease, stage 2 (mild); Z78.1 Physical restraint status; Z79.01 Long term (current) use of anticoagulants; Z86.73 Personal history of transient ischemic attack (TIA), and cerebral infarction without residual deficits; Z79.899 Other long term (current) drug therapy
CPT/HCPCS: 31500; 36415; 36600; 70551; 71045; 76770; 76937; 80048; 80053; 80061; 80162; 81003; 82140; 82375; 82550; 82553; 82607; 82728; 82746; 82805; 82962; 83036; 83615; 83735; 83880; 84100; 84145; 84439; 84443; 84478; 84481; 84484; 85014; 85018; 85025; 85044; 85379; 86140; 87070; 87635; 93005; 93880; 93970; 94003; 99285; C1725; C1893; J0153; J0330; J0456; J0696; J1100; J1160; J1650; J1815; J2250; J2370; J2704; J2765; J3010; J3490; J7042; J7050; J7060; J7070; P9041; A4315